=== PATIENT | female | born 1940 | race Caucasian/White ===

== ENCOUNTER → 2018-04-08 13:05 | Outpatient (CLI) | payer OTHER, SELFPAY ==
--- NOTE | 2018-04-08 | DI.MRI.S_ITS ---
PROCEDURE: MR KNEE LT WO CON INDICATIONS: CHRONIC PAIN OF LEFT KNEE TECHNIQUE: Noncontrast sagittal PD fast spin echo and T2 fast spin echo with fat saturation, sagittal 3-D FLASH with fat saturation; coronal T1 spin echo and PD fast spin echo with fat saturation, and axial PD fast spin echo with fat saturation through the knee. COMPARISON: [facility] [place], CR, XR KNEE ARTHRITIC SERIES LT, 03/31/2018, 11:41. FINDINGS: Image quality: Excellent. Menisci: There is degenerative fraying of the free edge of the medial meniscal body and anterior horn. There is radial tearing of the anterior horn medial meniscus. There is linear and amorphous high signal intensity within the medial meniscal body and posterior horn, demonstrating superior and inferior articular surface extension, indicating complex tearing. There is linear high signal intensity horizontally traversing the lateral meniscal body and posterior horn, demonstrating superior articular surface extension, indicating horizontal tearing. Cruciate ligaments: The anterior and posterior cruciate ligaments appear intact. Medial structures: The medial collateral ligament appears intact. Visualized portions of the pes anserinus tendons appear normal. No abnormal bursal fluid. Lateral structures: The lateral collateral ligament, long and short heads of the biceps femoris tendon appear intact. The popliteus tendon appears normal. Iliotibial band appears normal. Anterior structures: The quadriceps and patellar tendons appear intact. Patellar alignment is normal. No femoral trochlear dysplasia or ventral trochlear prominence. Moderate edema in the infrapatellar fat pad. Bones and cartilage: No bone marrow contusions or fractures. There is severe tricompartmental periarticular osteophyte formation. Mild, degenerative subchondral marrow edema within the weightbearing aspects of the medial femoral condyle, medial and central tibial plateau is present. There is a 3 mm diameter focal full-thickness articular cartilage defect overlying the medial patellar apex inferiorly, superimposed on mild diffuse articular cartilage loss overlying the patella. Severe diffuse articular cartilage loss overlies the weightbearing aspects of the medial femoral condyle and tibial plateau. Moderate diffuse articular cartilage loss overlies the weightbearing aspects of the lateral femoral condyle and lateral tibial plateau. Joint space: There is a moderate knee joint effusion and a small Valdez's cyst. There is a small ganglion cyst along the popliteus. There are multiple intra-articular loose bodies, largest of which is in the anterior lateral compartment measuring 6 mm. Normal appearing synovial plicae are incidentally noted. IMPRESSION: 1. Tricompartmental osteoarthritis with associated articular cartilage loss as described above. 2. Medial and lateral meniscal tearing. 3. Knee joint effusion, Valdez's cyst, small ganglion cyst along the popliteus, and multiple intra-articular loose bodies. 4. Moderate infrapatellar fat pad edema, which could indicate degenerative sequelae, or Hoffa's syndrome. Dictated by: Gustavo Ryan M.D. on 04/08/2018 at 14:12 Approved by: Gustavo Ryan M.D. on 04/08/2018 at 14:18
== END ==
PROVIDERS: Visit Provider Orthopaedic Surgery
DX: M25.562 Pain in left knee (principal)
CPT/HCPCS: 73721

== ENCOUNTER → 2022-07-16 09:53 | Outpatient (CLI) | payer MEDICARE, SELFPAY ==
--- NOTE | 2022-07-16 | DI.CT.S_ITS ---
PROCEDURE: CT SHOULDER LEFT WITHOUT CON INDICATIONS: Primary osteoarthritis, left shoulder TECHNIQUE: Noncontrast 1-1.5 mm thick sections acquired from the acromioclavicular joint to the inferior scapula, with coronal and sagittal reformatting. COMPARISON: None. FINDINGS: Image quality: Excellent. Bones: [id number] acromioclavicular joint osteoarthritic changes are seen with joint space narrowing, subchondral sclerosis and small marginal osteophyte formation depressing the musculotendinous junction of supraspinatus. Severe glenohumeral joint osteoarthritic changes are seen with near complete loss of joint space, extensive subchondral sclerosis and prominent inferior marginal osteophyte formation. No shoulder fracture or dislocation. No suspicious intraosseous lesion. Visualized left upper to mid ribs are intact. Soft tissues: There is no full-thickness rotator cuff tendon rupture. Mild to moderate supraspinatus muscle atrophy is seen on sagittal images. Small subacromial subdeltoid bursal fluid and moderate amount of subcoracoid bursal fluid is seen. No definite intra-articular loose bodies are seen. No abnormal soft tissue calcifications. There is no axillary lymphadenopathy by size criteria. Visualized left lung field is clear. IMPRESSION: 1. Severe glenohumeral joint osteoarthritis and mild to moderate acromioclavicular joint osteoarthritis. No shoulder fracture or dislocation. No suspicious bony lesions. 2. Small to moderate amount of subacromial subdeltoid bursal fluid and subcoracoid bursal fluid. No gross loose bodies. 3. No full-thickness rotator cuff tendon rupture. Mild to moderate supraspinatus muscle atrophy. No abnormal soft tissue calcifications. Dictated by: Ant Castañeda M.D. on 07/16/2022 at 12:52 Approved by: Ant Castañeda M.D. on 07/16/2022 at 12:57
== END ==
PROVIDERS: PCP Orthopaedic Surgery; Referring Provider Orthopaedic Surgery; Visit Provider Orthopaedic Surgery
DX: M19.012 Primary osteoarthritis, left shoulder (principal)
CPT/HCPCS: 73200

== ENCOUNTER → 2022-07-16 09:58 | Outpatient (CLI) | payer MEDICARE, SELFPAY | PROVIDERS: PCP Orthopaedic Surgery; Referring Provider Orthopaedic Surgery; Visit Provider Orthopaedic Surgery | DX: Z01.818 Encounter for other preprocedural examination (principal); M19.012 Primary osteoarthritis, left shoulder | CPT/HCPCS: 73200; 93005 ==

== ENCOUNTER 2022-10-09 11:53 | Inpatient (IN) | payer MEDICARE, SELFPAY ==
[2022-09-24 09:35] VITALS: BMI 24.6
[2022-10-09] VITALS (7 sets, daily range): BP systolic 142–190; BP diastolic 79–90; PULSE 81–92; RESP 16–21; TEMP 36.4; O2SAT 91–99; BMI 23.9
--- NOTE | 2022-10-09 06:00 | DI.RAD.S_ITS ---
PROCEDURE: XR SHOULDER LT 1V INDICATIONS: RTSA TECHNIQUE: 1 views of the shoulder were acquired. COMPARISON: None. FINDINGS: Bones: Patient is status post reverse left shoulder arthroplasty. Left shoulder alignment is anatomic. No fractures or dislocations. No suspicious bony lesions. Visualized ribs appear intact. Soft tissues: Expected postsurgical changes are seen in left shoulder soft tissue. No suspicious soft tissue calcifications. IMPRESSION: Postop changes from reverse left shoulder arthroplasty with anatomic left shoulder alignment. Dictated by: Ant Castañeda M.D. on 10/09/2022 at 18:17 Approved by: Ant Castañeda M.D. on 10/09/2022 at 18:18
[2022-10-09] MEDS: CELECOXIB 200 MG CAPSULE PO (13:04)
[2022-10-09] MEDS: ACETAMINOPHEN 325 MG TABLET 975 MG PO (13:04)
[2022-10-09] MEDS: LACTATED RINGERS 1,000 ML 42 ML IV ×2 (13:05→16:14)
[2022-10-09 13:17] LABS: COVID19 -Nasal RAPID Negative (Negative)
--- NOTE | 2022-10-09 14:26 | SUR.PREOP ---
Block start time [1427] . Monitoring initiated and maintained throughout procedure. Oxygen and medications given per anesthesiologist instructions. Patient remained stable throughout procedure, no adverse reactions noted. Block end time [1430].
--- NOTE | 2022-10-09 14:41 | PM.PREOP ---
Pre-operative Note Interval Note History & Physical reviewed/Exam performed by Physician: Yes Changes to H&P: No
[2022-10-09] MEDS: CEFAZOLIN 2 GM/100 ML PREMIX 100 ML IV (15:00)
[2022-10-09] MEDS: TRANEXAMIC ACID 1,000 MG VIAL 1000 MG INJ (15:00)
[2022-10-09] MEDS: BUPIVACAINE 0.25% (PF) 30 ML, EPINEPHrine 0.15 MG INJ (15:12)
--- NOTE | 2022-10-09 15:33 | SUR.OPER ---
Beach chair with Shelly/Juanita shoulder positioner. Lower body on padded OR bed. Head in foam padded head cradle, secured with straps. Non-operative arm secured <90 degrees abduction. Pillow under knees. Safety belt at thigh. Cloth tape over blanket over lower legs.
--- NOTE | 2022-10-09 16:59 | PM.OP.1 ---
Operative Date/Time/Diagnoses Date of procedure: 10/09/22 Time of procedure: 16:59 Pre-op diagnosis: Left shoulder glenohumeral arthritis Post-op diagnosis: same Procedure & Clinicians Procedure: Left shoulder reverse total shoulder arthroplasty Same procedure as scheduled: Yes Indications: Indications: This is a 82-year-old female who has left shoulder glenohumeral arthritis. Symptoms have been present for years, insidious onset. Patient has failed conservative therapy including injections, physical therapy, anti-inflammatories and activity modification. After extensive discussion in clinic, they wished to go forward with surgery. Risks and benefits were described including the risk of infection, bleeding, damage to internal structures including nerves. We also discussed the risk of failure of surgery and the need for revision surgery as well as the risk of anesthesia. The patient expressed understanding with these risks and wished to go forward with surgery. Surgeon: Nick Maya Educational/Development Assistant: Brenda Meyer Anesthesia Type: General Operative Notes Findings: Findings: Osteoarthritis of the glenoid and humeral head as well as intact rotator cuff Closure Type: primary Specimen(s): none sent Prosthetic devices, grafts, tissues, transplants, or devices: Tornier implants Base plate: standard 25 mm, +3 mm offset Glenosphere: Standard 36 mm Stem: Perform 3+ Poly: +3 concentric Estimated Blood Loss (mL): 50 Blood products transfused: none Procedure in detail: Patient was seen in the preoperative holding unit. The correct left shoulder shoulder was identified and marked with my initials. Again we discussed the risks and benefits of surgery and they wished to go forward with surgery. The patient was brought back to the operating room and placed supine on the operating table. Smooth endotracheal intubation was performed by anesthesia. All prominences were padded and they were placed into the beach chair position. Intravenous antibiotics were given. The left shoulder shoulder was then prepped with the standard sterile preparation and draping. A time-out was then performed in my initials were again identified on the correct shoulder. 1 g of IV tranexamic acid was given. A standard deltopectoral incision was made. Skin flaps were made. The cephalic vein was identified and retracted laterally. This was protected throughout the remainder of the case. Sharp dissection was made along the deltoid, subacromial and subcoracoid space to release adhesions. The conjoined tendon was identified and the axillary nerve was palpated and continuous using the tug test. It was protected throughout the remainder of the case. A brown retractor was placed underneath the deltoid muscle and a darach retractor underneath the conjoint tendon. The anterior circumflex artery and associated veins on the lower border of the subscapularis were identified and tied off using 0-Vicryl. The biceps tendon was identified in the bicipital groove. This was released from its sheath, and taken from its origin on the glenoid and tied into the pectoralis tendon for a solid tenodesis. We then began a subscapularis peel. The subscapularis was tagged with an Ethibond suture. A 360 degree circumferential release of the subscapularis was performed with protection of the axillary nerve. The coracohumeral ligament was released at the base of the coracoid. The coracoacromial ligament was left intact. The shoulder was then dislocated. Osteophytes were removed using combination of rongeur and osteotome. The rotator cuff was noted to be intact. An intramedullary guide was used set at version of 30?. Using an oscillating saw a conservative humeral head cut was made. Impaction reamers were reamed up to a size 3 stem with a built-in angle 135?. A neck protector was placed. Attention was then turned to the glenoid. After retracting the humeral head posteriorly a circumferential release was performed of the capsule with protection of the axillary nerve. The labrum was then released starting at the biceps anchor and going around the rim a small amount of triceps was released from the inferior glenoid. A center guide pin was then placed using the guide, followed by Reamer. After adequate cartilage was removed the center drill hole was drilled and measured. The base plate was then implanted and screwed into place. The superior and inferior holes were filled in nonlocking fashion in the anterior and posterior were filled in locking fashion. A 36 standard glenosphere was then selected and screwed into place onto the base plate. Turning back to the humerus, the humeral head was delivered and trialed with a +3 concentric. The arm was taken through range of motion and this was felt to be stable. The trial was then removed and a dilute Betadine wash was then performed with 1 L of sterile saline. Before placing the final implant, drill holes were made in the bicipital groove for the subscapularis repair, and sutures were passed through the drill holes. The final stem (3+) was then impacted into the humerus. The shoulder was then reduced and again brought through range of motion and was felt to be stable. The interval was then closed using #2 Ethibond. The subscapularis was then repaired using a modified racking hitch with nice loupes. The deltopectoral interval was then closed with #2 Ethibond. The skin was closed with 2-0 PDS and Monocryl followed by Aquacel dressing. Patient was awoken from anesthesia and brought back to the postoperative recovery unit without issue. They were placed into a sling. Assisting participation: This operation could not have been safely performed (without compromising the technical results or length of the procedure) without the assistance of a skilled assistant credit manager. The assistant credit manager was medically necessary for proper positioning, retraction and manipulation of instruments, proper exposure, graft prep, and manipulation of tissue. Complications: none Post-operative Condition: stable Disposition: PACU Plan for aftercare: Postoperative instructions: Sling to remain on for 6 weeks. No external rotation past neutral for 6 weeks. Okay for him to come off her shower. Okay to shower over the Aquacel dressing. If any water gets underneath the dressing, remove the dressing. First postoperative visit in 2 weeks.
--- NOTE | 2022-10-09 18:15 | SUR.PHASEII ---
gave teaching instructions to pt and spouse on dressing and removing/reapplying sling.
== END 2022-10-09 18:18 | disposition home or self-care (01) | DRG 483 ==
PROVIDERS: Admitting Provider Orthopaedic Surgery; PCP Nurse Practitioner Family; Referring Provider Orthopaedic Surgery; Visit Provider Orthopaedic Surgery
PROC: 0RRK00Z Replacement of Left Shoulder Joint with Reverse Ball and Socket Synthetic Substitute, Open Approach (ICD-10-PCS; CPT 23472; principal; 2022-10-09 13:45)
DX: M19.012 Primary osteoarthritis, left shoulder (principal); Z20.822 Contact with and (suspected) exposure to COVID-19
CPT/HCPCS: 64450; 73020; 87635; C1776; C9803; J0171; J0330; J0690; J1100; J2250; J2405; J2704; J3010

== ENCOUNTER → 2023-04-30 10:15 | Outpatient (CLI) | payer MEDICARE, SELFPAY ==
--- NOTE | 2023-04-30 10:16 | DI.CT.S_ITS ---
PROCEDURE: CT UE RT WO CON INDICATIONS: Primary osteoarthritis, right shoulder TECHNIQUE: Noncontrast 1-1.5 mm thick sections acquired from the acromioclavicular joint to the inferior scapula, with coronal and sagittal reformatting. COMPARISON: None. FINDINGS: Image quality: Excellent. Bones: There is severe glenohumeral joint degenerative change present and mild to moderate AC joint degenerative change. There is a large subchondral cyst present in the superior acetabulum what appears to be some associated cortical breakthrough. There is a moderate size shoulder joint effusion. There is a small loose body in the axillary pouch. Adjacent soft tissues are otherwise unremarkable. IMPRESSION: 1. Severe osteoarthritic degenerative change involving the patient's glenohumeral joint. 2. There is a large subchondral cyst noted within the superior acetabulum with associated cortical breakthrough. 3. Mild to moderate AC joint degenerative change. 4. Moderate size shoulder joint effusion. 5. Small ossific loose body in the axillary pouch region. Dictated by: Markel Marie M.D. on 04/30/2023 at 11:50 Approved by: Markel Marie M.D. on 04/30/2023 at 11:57
== END ==
PROVIDERS: PCP Nurse Practitioner Family; Referring Provider Orthopaedic Surgery; Visit Provider Orthopaedic Surgery
DX: M19.011 Primary osteoarthritis, right shoulder (principal); M25.811 Other specified joint disorders, right shoulder; M25.411 Effusion, right shoulder; M24.011 Loose body in right shoulder
CPT/HCPCS: 73200

== ENCOUNTER 2023-06-25 08:11 | Day surgery (SDC) | payer MEDICARE, SELFPAY ==
[2023-06-18 13:27] VITALS: BMI 24.6
--- NOTE | 2023-06-25 06:00 | DI.RAD.S_ITS ---
PROCEDURE: XR SHOULDER RT 1V INDICATIONS: RTSA TECHNIQUE: 1 views of the shoulder were acquired. COMPARISON: None. FINDINGS: Evaluation is limited on single AP view. Bones: Right total shoulder arthroplasty is intact with no perihardware lucency to suggest hardware loosening. Anatomic alignment on limited AP view. Visualized ribs appear intact. Soft tissues: Postsurgical changes about the right shoulder. Visualized right lung is clear. No suspicious soft tissue calcifications. IMPRESSION: Evaluation is limited on single AP view. Right total shoulder arthroplasty is intact with anatomic alignment on limited AP view. Dictated by: Sarah Singh M.D. on 06/25/2023 at 19:16 Approved by: Sarah Singh M.D. on 06/25/2023 at 19:19
[2023-06-25 08:42] VITALS: BMI 24.6
[2023-06-25 08:55] VITALS: BP 194/108; PULSE 96; RESP 19; TEMP 36.7; O2SAT 96
[2023-06-25] MEDS: ACETAMINOPHEN 325 MG TABLET 975 MG PO (09:15)
[2023-06-25] MEDS: LACTATED RINGERS 1,000 ML 42 ML IV ×2 (09:16→11:26)
--- NOTE | 2023-06-25 09:20 | PM.PREOP ---
Pre-operative Note Interval Note History & Physical reviewed/Exam performed by Physician: Yes Changes to H&P: No
--- NOTE | 2023-06-25 09:56 | SUR.PREOP ---
Block start time [1951] . Monitoring initiated and maintained throughout procedure. Oxygen and medications given per anesthesiologist instructions. Patient remained stable throughout procedure, no adverse reactions noted. Block end time [1953].
[2023-06-25] MEDS: CEFAZOLIN 2 GM/100 ML PREMIX 100 ML IV (10:00)
[2023-06-25] MEDS: TRANEXAMIC ACID 1,000 MG VIAL 1000 MG INJ (10:00)
--- NOTE | 2023-06-25 10:29 | SUR.OPER ---
Beach chair with Shelly/Juanita shoulder positioner. Lower body on padded OR bed. Head in foam padded head cradle, secured with straps. Non-operative arm secured <90 degrees abduction. PillowS X 2 under knees. Safety belt at thigh. Cloth tape over blanket over lower legs.
[2023-06-25] MEDS: BUPIVACAINE 0.25% (PF) 30 ML, EPINEPHrine 0.15 MG INJ (10:47)
--- NOTE | 2023-06-25 11:40 | P.OP_ITS ---
Operative Date/Time/Diagnoses Date of procedure: 06/25/23 Time of procedure: 11:40 Pre-op diagnosis: Right glenohumeral arthritis Post-op diagnosis: same Procedure & Clinicians Procedure: Right reverse total shoulder arthroplasty Same procedure as scheduled: Yes Indications: Indications: This is a 82-year-old female who has right glenohumeral arthritis. Symptoms have been present for years, insidious onset. Patient has failed conservative therapy including injections, physical therapy, anti-inflammatories and activity modification. After extensive discussion in clinic, they wished to go forward with surgery. Risks and benefits were described including the risk of infection, bleeding, damage to internal structures including nerves. We also discussed the risk of failure of surgery and the need for revision surgery as well as the risk of anesthesia. The patient expressed understanding with these risks and wished to go forward with surgery. Surgeon: Nick Maya Senior Drupal Developer: Lata Simmons Click Yes if Unassisted: No Anesthesia Type: General Operative Notes Findings: Findings: Osteoarthritis of the glenoid and humeral head, intact rotator cuff as noted on preoperative imaging and under direct visualization Closure Type: primary Prosthetic devices, grafts, tissues, transplants, or devices: Tornier implants Base plate: standard 25 mm, +3 mm offset Glenosphere: Standard 36 mm Stem: Perform 3 Poly: +0 concentric Estimated Blood Loss (mL): 50 Procedure in detail: Patient was seen in the preoperative holding unit. The correct right shoulder was identified and marked with my initials. Again we discussed the risks and benefits of surgery and they wished to go forward with surgery. The patient was brought back to the operating room and placed supine on the operating table. Smooth endotracheal intubation was performed by anesthesia. All prominences were padded and they were placed into the beach chair position. Intravenous antibiotics were given. The right shoulder was then prepped with the standard sterile preparation and draping. A time-out was then performed in my initials were again identified on the correct shoulder. 1 g of IV tranexamic acid was given. A standard deltopectoral incision was made. Skin flaps were made. The cephalic vein was identified and retracted laterally. This was protected throughout the remainder of the case. Sharp dissection was made along the deltoid, subacromial and subcoracoid space to release adhesions. The conjoined tendon was identified and the axillary nerve was palpated and continuous using the tug test. It was protected throughout the remainder of the case. A brown retractor was placed underneath the deltoid muscle and a darach retractor underneath the conjoint tendon. The anterior circumflex artery and associated veins on the lower border of the subscapularis were identified and tied off using 0-Vicryl. The biceps tendon was identified in the bicipital groove. This was released from its sheath, and taken from its origin on the glenoid and tied into the pectoralis tendon for a solid tenodesis. We then began a subscapularis peel. The subscapularis was tagged with an Ethibond suture. A 360 degree circumferential release of the subscapularis was performed with protection of the axillary nerve. The coracohumeral ligament was released at the base of the coracoid. The coracoacromial ligament was left intact. The shoulder was then dislocated. Osteophytes were removed using combination of rongeur and osteotome. The rotator cuff was noted to be intact. An intramedullary guide was used set at version of 30?. Using an oscillating saw a conservative humeral head cut was made. Impaction reamers were reamed up to a size 3 stem with a built-in angle 135?. A neck protector was placed. Attention was then turned to the glenoid. After retracting the humeral head posteriorly a circumferential release was performed of the capsule with protection of the axillary nerve. The labrum was then released starting at the biceps anchor and going around the rim a small amount of triceps was released from the inferior glenoid. A center guide pin was then placed using the guide, followed by Reamer. After adequate cartilage was removed the center drill hole was drilled and measured. The base plate was then implanted and screwed into place. The superior and inferior drill hole was drilled and filled in a nonlocking fashion, followed anterior holes in locking fashion, the posterior hole was also filled. A 36 standard glenosphere was then selected and screwed into place onto the base plate. Turning back to the humerus, the humeral head was delivered and trialed with a 0 concentric. The arm was taken through range of motion and this was felt to be stable. The trial was then removed and a dilute Betadine wash was then performed with 1 L of sterile saline. Before placing the final implant, drill holes were made in the bicipital groove for the subscapularis repair, and sutures were passed through the drill holes. The final stem was then impacted into the humerus. The shoulder was then reduced and again brought through range of motion and was felt to be stable. The interval was then closed using #2 Ethibond. The subscapularis was then repaired using a modified racking hitch with nice loupes. The deltopectoral interval was then closed with #2 Ethibond. The skin was closed with 2-0 PDS and Monocryl followed by Aquacel dressing. Patient was awoken from anesthesia and brought back to the postoperative recovery unit without issue. They were placed into a sling. Assisting participation: This operation could not have been safely performed (without compromising the technical results or length of the procedure) without the assistance of a skilled surgical forceps fabricator. The surgical forceps fabricator was medically necessary for proper positioning, retraction and manipulation of instruments, proper exposure, graft prep, and manipulation of tissue. Complications: none Post-operative Condition: stable Disposition: PACU Plan for aftercare: Postoperative instructions: Sling to remain on for 6 weeks. No external rotation past neutral for 6 weeks. Okay for the sling to come off for shower. Okay to shower over the Aquacel dressing. If any water gets underneath the dressing, remove the dressing. First postoperative visit in 2 weeks.
[2023-06-25 11:54] VITALS: BP 129/60; PULSE 65; RESP 16; TEMP 36.2; O2SAT 98
[2023-06-25 12:12] VITALS: BP 150/77; PULSE 78; RESP 16; TEMP 36.2; O2SAT 98
== END 2023-06-25 12:51 | disposition home or self-care (01) ==
LOC: AC 12:17 → OR 06-26 10:39
PROVIDERS: PCP Nurse Practitioner Family; Referring Provider Orthopaedic Surgery; Visit Provider Orthopaedic Surgery
PROC: (CPT 23472; principal; 2023-06-25 10:15)
DX: M19.011 Primary osteoarthritis, right shoulder (principal); G89.18 Other acute postprocedural pain
CPT/HCPCS: 23472; 64415; 73020; C1776; J0171; J0690; J1100; J2405; J2704; J3010